=== PATIENT | male | born 1960 | race Two or more races ===

== ENCOUNTER → 2017-04-01 | Day surgery (SDC) | payer BC ==
[~2017-04-01] MED LIST: BUPIVACAINE/EPINEPHRINE 0.25% 50 ML VIAL ONE; KETOROLAC TROMETHAMINE 30 MG/ML (IVP) VIAL IV PUSH ONE; LIDOCAINE 1%/EPINEPHrine 1:200,000 PF SOLN 30 ML VIAL ONE; ONDANSETRON HCL 4 MG/2 ML VIAL IV PUSH ONE; PROPOFOL 200 MG/20 ML AMP IV ONE; ceFAZolin INJ 1,000 MG VIAL ONE
--- NOTE | 2017-04-01 23:05 | MP ---
cc: RACHANA ALVA MD DATE OF SURGERY 04/01/17 PREOPERATIVE DIAGNOSIS Right elbow partial tear of the extensor carpi radialis brevis tendon. POSTOPERATIVE DIAGNOSIS Right elbow partial tear of the extensor carpi radialis brevis tendon. SURGEON Annabelle Alva MD ROBOTYPE OPERATOR MANUEL Kang The surgical procedure was assisted by my Advanced Registered Nurse Practitioner. My CELL PHONE REPAIR TECHNICIAN presence was necessary throughout this case for the manipulation and positioning of the surgical extremity. My CELL PHONE REPAIR TECHNICIAN was assisting me throughout the duration of this procedure. The skill set of an Advance Registered Nurse Practitioner was medically necessary to complete this procedure. During the surgical case, the surgical specialist was working at the back table and the Advance Registered Nurse Practitioner was directly assisting me. PROCEDURE IN DETAIL Right elbow repair of extensor carpi radialis tendon tear. ESTIMATED BLOOD LOSS Minimal. TOURNIQUET TIME 17 minutes at 250 mmHg pressure. ANESTHESIA General anesthesia The patient was brought back to the operative theatre. He received intravenous Ancef. General anesthesia was administered. The right upper extremity was prepped and draped in usual sterile fashion. We gave local anesthesia with 0.25% Marcaine with epinephrine on the lateral aspect of the elbow, __ was exsanguinated. Standard lateral incision was made curvilinear over the lateral epicondyle. We dissected down to the common extensor tendon which on the superficial surface appeared to be intact. We then incised through this mid aspect in a longitudinal fashion and we found that the knife fell into the partial tear of the extensor carpi radialis brevis. We could see where it was attached from the bone and we could seen right at that area there was significant tendinosis of the tendon. There was a little bit of fluid that was expressed from that area as well which was clear fluid. No signs of infection. We irrigated. We then used a combination of rongeur and also rasp to debride the bone for the repair. We also used the rongeur on the significant area of tendinosis and also sharply excised portion of this tendon. We then repaired the tendon using an Arthrex bioabsorbable anchor which was loaded with two individual 2-0 fiber wires. We placed the anchor and made sure we had very good pull out strength and then we used each of these two sutures to create [id number] type of repairs which would then run one of him proximal and one of them distally creating a [id number] repair at each step and this pulled the tendon down very nicely. The tourniquet was released. Hemostasis was achieved. The wound was irrigated and the skin was closed with 2-0 Vicryl followed by 3-0 nylon. The patient was placed into a posterior splint. Postoperative plan is a standard extensor tendon repair protocol for the elbow. MD COLLETTE Shafer/ /3:46 PM /10:57 PM
== END | disposition home or self-care (01) ==
LOC: ESDC 12:47
PROVIDERS: ATTEND Orthopaedic Surgery
DX: M77.11 Lateral epicondylitis, right elbow (principal)
CPT/HCPCS: 01712; 24359; C1713; J0690; J1885; J2405; J3010